=== PATIENT | female | born 1995 | race Caucasian/White ===

== ENCOUNTER 2024-08-24 13:35 | Outpatient (CLI) | payer BC ==
[2024-08-24] MEDS: BETAMET ACET-BETAMETH SOD PHOS 6 MG/ML MDV IM SCH (13:45)
== END 2024-08-24 13:55 | disposition home or self-care (01) ==
LOC: FBPOP 13:35
PROVIDERS: ATTEND Obstetrics & Gynecology Obstetrics
DX: O34.30 Maternal care for cervical incompetence, unspecified trimester (principal); Z3A.00 Weeks of gestation of pregnancy not specified

== ENCOUNTER 2024-08-25 13:07 | Outpatient (CLI) | payer BC ==
[2024-08-25] MEDS: BETAMET ACET-BETAMETH SOD PHOS 6 MG/ML MDV IM SCH (13:36)
== END 2024-08-25 13:40 | disposition home or self-care (01) ==
LOC: FBPOP 13:07
PROVIDERS: ATTEND Obstetrics & Gynecology Obstetrics
DX: E11.9 Type 2 diabetes mellitus without complications (principal); N28.9 Disorder of kidney and ureter, unspecified; Z91.041 Radiographic dye allergy status
CPT/HCPCS: 96372; J0702

== ENCOUNTER 2024-09-07 14:05 | Outpatient (CLI) | payer BC ==
[2024-09-07] MEDS ORDERED: LACTATED RINGERS 1,000 ML IV SCH (14:45)
[2024-09-07] MEDS: LACTATED RINGERS 1,000 ML IV ONE (15:14)
[2024-09-07 15:38] LABS: Bilirubin,Urine Negative (Negative); Blood,Urine Negative (Negative); Color,Urine Colorless; Glucose,Urine (UA) Negative (Negative); Ketones,Urine Negative (Negative); Leukocyte Esterase,Urine Negative (Negative); Nitrite,Urine Negative (Negative); PH, Urine 6.5 (5.0-8.0); Protein,Urine Negative (Negative); Specific Gravity,Urine 1.002 (1.001-1.035); Urobilinogen,Urine <2.0 mg/dL (<2.0)
[2024-09-07 16:46] VITALS: BP 139/79; PULSE 111; RESP 16; TEMP 98.1
--- NOTE | 2024-10-14 09:49 | P.MSEPDOC ---
Presenting Problems - Arrival Data Date of Arrival on Unit: 09/07/24 Time of Arrival on Unit: 14:05 Mode of Transport: Ambulatory - Complaint OB-Reason for Admission/Chief Complaint: NST Comment: NSt and BPP, sent from office Medical History - Information : 1 Para: 0 Term: 0 : 0 Abortions: Spontaneous or Elective: 0 Number of Living Children: 0 - Gestational Age Gestational Age by CHANTE (wks/days): 33 Weeks and 0 Days - History Complications: Incompetent Cervix Review of Systems - Review of Systems Constitutional: No problems Breast: No problems ENT: No problems Cardiovascular: No problems Respiratory: No problems Gastrointestinal: No problems Genitourinary: No problems Musculoskeletal: No problems Neurological: No problems Skin: No problems Vital Signs - Temperature Temperature: 98.1 F Temperature Source: Temporal Artery Scan - Pulse Right Sitting Pulse Rate: 111 Pulse Assessment Method: Automatic Cuff - Respirations Respiratory Rate: 16 Oxygen Delivery Method: Room Air O2 Sat by Pulse Oximetry: 98 - Blood Pressure Right Arm Blood Pressure: 139/79 Blood Pressure Mean: 99 Blood Pressure Source: Automatic Cuff Medical Screen Scoring - Uterine Contractions Intensity: Mild Resting: Soft to palpation - Assessment - Baby A Baseline FHR: 160 Heart Rate - NICHD Category: Category I (Normal) NST: Reactive Physician Notification - Physician Notified Physician Notified Date: 09/07/24 Physician Notified Time: 15:55 Physician: Nancy Mi New Order Received: Yes (d/c home) Maternal Triage Index - Non-Urgent/Priority 4 Non-Urgent Priority 4: Yes Criteria Met for Priority 4: pt sent to [facility] from office, states was having routine nst and heart rate was >200, reactive nst, fhr baseline <160, moderate variability, accels present, no decels. vitals wnl Disposition - Disposition OB Disposition: Discharge to home Discharge Date: 09/07/24 Discharge Time: 16:32 I agree with the RN Medical Screening Exam: Yes Case reviewed; plan agreed upon as documented in EMR&OBIX.: Yes Diagnosis: RELATED CONDITIONS, UNSPECIFIED, THIRD TRIMESTER
== END 2024-09-07 16:32 | disposition home or self-care (01) ==
LOC: FBPOP 14:05
PROVIDERS: ATTEND Obstetrics & Gynecology Obstetrics
DX: O26.893 Other specified pregnancy related conditions, third trimester (principal); Z3A.33 33 weeks gestation of pregnancy
CPT/HCPCS: 59025; 81003; 96360; 96361